=== PATIENT | male | born 1965 | race Caucasian/White ===

== ENCOUNTER 2022-05-16 13:30 | Outpatient (CLI) | payer OTHER, SELFPAY ==
[2022-05-16 21:27] LABS: Chloride* 102 mmol/L (96-114)
[2022-05-16 21:28] LABS: Albumin* 4.8 g/dL (3.3-5.0); Potassium* 4.3 mmol/L (3.6-5.1); Sodium* 136 mmol/L (135-149)
[2022-05-16 21:31] LABS: Alanine Aminotransferase* 22 U/L (4-50); Alkaline Phosphatase* 106 U/L (40-150); Aspartate Amino Transferase* 25 U/L (12-35); Bilirubin Total* 0.6 mg/dL (0.1-1.5); Blood Urea Nitrogen* 21 mg/dL (7-30); Calcium* 9.7 mg/dL (8.4-10.6); Carbon Dioxide* 25 mmol/L (20-32); Creatinine* 1.1 mg/dL (0.5-1.5); Estimated Glomerular Filt Rate 79.77; Glucose* 91 mg/dL (60-115)
== END 2022-05-16 13:31 | disposition home or self-care (01) ==
PROVIDERS: PCP Internal Medicine; Visit Provider Dermatology
DX: Z79.899 Other long term (current) drug therapy (principal); L40.9 Psoriasis, unspecified; L40.50 Arthropathic psoriasis, unspecified; E78.5 Hyperlipidemia, unspecified
CPT/HCPCS: 80053; 86480

== ENCOUNTER 2022-06-24 15:15 | Outpatient (CLI) | payer OTHER, SELFPAY ==
--- NOTE | 2022-06-24 15:30 | MR_ITS ---
[facility] [address] [facility] [address] Phone:?[phone] Fax:?[phone] Referring Physician Information: Clarence Richard M.D. [address] [place] [address] Phone:?[phone] Fax:?[phone] Patient:?Jcarlos Tabares D.O.B:?1965 Sex:?Male Phone:?[phone] [facility] MRN:?[id number] Exam Date:?06/24/2022 ? Original Report EXAM: MRI of the RIGHT SHOULDER, without contrast CLINICAL INFORMATION: Male, 56 years old, with right shoulder pain INDICATION: Evaluate rotator cuff tear PRIOR SURGERY: None reported. PLAIN FILMS: None available. COMPARISONS: No prior MRIs available. TECHNICAL INFORMATION: Using a 1.5T MR scanner and a localizing surface coil: Coronals: PD, T2, STIR Sagittals: PD, T2 Axials: PD, T2 SEDATION: None CONTRAST: None FINDINGS: Bones: Proximal humerus: No fracture. There is an intramedullary lesion in the proximal humeral shaft measuring approximately 2.3 x 1.4 x 1.3 cm which demonstrates heterogeneous mild STIR signal hyperintensity and intermediate to low PD and T2 signal (coronal series 4 image 23, and sagittal series 8 image 9). Minimal peripheral marrow edema. No well-defined endosteal scalloping, or periosteal reaction. No intracortical signal abnormality or fracture. Glenoid: No fracture or marrow edema/pathology. No osseous Bankart lesion. Rotator cuff and muscles/tendons: Supraspinatus: Moderate supraspinatus tendinosis with high-grade interstitial tearing at the far anterior distal insertional footprint with likely bursal sided extension measuring approximately 1.3 cm in AP dimension (coronal series 4 image 12, and sagittal series 8 image 7). Articular sided fibers appear intact. No tendon retraction. No muscle belly atrophic changes. Infraspinatus: Mild infraspinatus tendinosis without rotator cuff tear. Teres minor: No tendinopathy, tear or atrophy. Subscapularis: Mild subscapularis tendinosis without rotator cuff tear. Deltoid: No strain or atrophy. Coracoacromial arch: Acromion morphology: The acromion has type II morphology. Small broad-based subacromial osseous spur Acromiohumeral space: The acromiohumeral space is within normal limits. Coracohumeral space: The coracohumeral space is within normal limits. Acromioclavicular joint: Joint: Moderate AC joint arthrosis. Inferior osteophytosis contacts and results in contour deformity of the underlying supraspinatus (coronal series 4 image 17, and sagittal series 8 image 16). Ligaments: Coracoclavicular ligaments are intact. Bursae: Subacromial-subdeltoid: Mild subacromial bursitis Subcoracoid: No convincing subcoracoid bursal thickening/bursitis. Biceps tendon: The long head of the biceps tendon is present within the bicipital groove. The intra-articular and extra-articular segments are intact without tendinosis, tenosynovitis, or displacement. Glenohumeral joint: Effusion/cyst: No significant glenohumeral joint effusion. Articular cartilage: Chondral heterogeneity and thinning of the glenohumeral articular cartilage without full-thickness osteochondral defect. Loose bodies: No discrete intra-articular body within the joint. Labrum:?There is diminutive appearance of the superior labrum with degeneration and fraying. No other definite evidence for labral tear. No paralabral ganglion cyst is identified. Inferior glenohumeral ligament/axillary pouch:?Intact. The axillary pouch is normal in thickness and signal. No evidence of adhesive capsulitis or capsular injury. IMPRESSION: 1. Moderate supraspinatus tendinosis with high-grade interstitial tearing at the far anterior distal insertional footprint with likely bursal sided extension. Articular sided fibers appear intact. No tendon retraction or muscle belly atrophic changes. 2. Mild infraspinatus and subscapularis tendinosis without rotator cuff tear. 3. Moderate AC joint arthrosis with prominent inferior osteophytosis which results in contour deformity of the underlying supraspinatus. Small subacromial osseous spur, with preserved acromiohumeral distance. Mild subacromial bursitis. 4. Diminutive appearance of the superior labrum with degeneration and fraying. 5. No tendinopathy, tear, or displacement of the long head of the biceps tendon. 6. Chondral heterogeneity and thinning without full-thickness chondral defect. 7. Intramedullary lesion of the proximal humeral shaft, indeterminate by imaging though concerning without typically benign features. Recommend follow-up with plain radiographs and bone scan for further evaluation. KME Electronically signed on 06/26/2022 12:56:00 PM by Ritu Moody M.D. Addendum A Addendum: Findings regarding humeral shaft lesion and recommendation for further imaging discussed with Dr. Richard at 1:15pm on 06/26/2022 KME EXAM: MRI of the RIGHT SHOULDER, without contrast CLINICAL INFORMATION: Male, 56 years old, with right shoulder pain INDICATION: Evaluate rotator cuff tear PRIOR SURGERY: None reported. PLAIN FILMS: None available. COMPARISONS: No prior MRIs available. TECHNICAL INFORMATION: Using a 1.5T MR scanner and a localizing surface coil: Coronals: PD, T2, STIR Sagittals: PD, T2 Axials: PD, T2 SEDATION: None CONTRAST: None FINDINGS: Bones: Proximal humerus: No fracture. There is an intramedullary lesion in the proximal humeral shaft measuring approximately 2.3 x 1.4 x 1.3 cm which demonstrates heterogeneous mild STIR signal hyperintensity and intermediate to low PD and T2 signal (coronal series 4 image 23, and sagittal series 8 image 9). Minimal peripheral marrow edema. No well-defined endosteal scalloping, or periosteal reaction. No intracortical signal abnormality or fracture. Glenoid: No fracture or marrow edema/pathology. No osseous Bankart lesion. Rotator cuff and muscles/tendons: Supraspinatus: Moderate supraspinatus tendinosis with high-grade interstitial tearing at the far anterior distal insertional footprint with likely bursal sided extension measuring approximately 1.3 cm in AP dimension (coronal series 4 image 12, and sagittal series 8 image 7). Articular sided fibers appear intact. No tendon retraction. No muscle belly atrophic changes. Infraspinatus: Mild infraspinatus tendinosis without rotator cuff tear. Teres minor: No tendinopathy, tear or atrophy. Subscapularis: Mild subscapularis tendinosis without rotator cuff tear. Deltoid: No strain or atrophy. Coracoacromial arch: Acromion morphology: The acromion has type II morphology. Small broad-based subacromial osseous spur Acromiohumeral space: The acromiohumeral space is within normal limits. Coracohumeral space: The coracohumeral space is within normal limits. Acromioclavicular joint: Joint: Moderate AC joint arthrosis. Inferior osteophytosis contacts and results in contour deformity of the underlying supraspinatus (coronal series 4 image 17, and sagittal series 8 image 16). Ligaments: Coracoclavicular ligaments are intact. Bursae: Subacromial-subdeltoid: Mild subacromial bursitis Subcoracoid: No convincing subcoracoid bursal thickening/bursitis. Biceps tendon: The long head of the biceps tendon is present within the bicipital groove. The intra-articular and extra-articular segments are intact without tendinosis, tenosynovitis, or displacement. Glenohumeral joint: Effusion/cyst: No significant glenohumeral joint effusion. Articular cartilage: Chondral heterogeneity and thinning of the glenohumeral articular cartilage without full-thickness osteochondral defect. Loose bodies: No discrete intra-articular body within the joint. Labrum:?There is diminutive appearance of the superior labrum with degeneration and fraying. No other definite evidence for labral tear. No paralabral ganglion cyst is identified. Inferior glenohumeral ligament/axillary pouch:?Intact. The axillary pouch is normal in thickness and signal. No evidence of adhesive capsulitis or capsular injury. IMPRESSION: 1. Moderate supraspinatus tendinosis with high-grade interstitial tearing at the far anterior distal insertional footprint with likely bursal sided extension. Articular sided fibers appear intact. No tendon retraction or muscle belly atrophic changes. 2. Mild infraspinatus and subscapularis tendinosis without rotator cuff tear. 3. Moderate AC joint arthrosis with prominent inferior osteophytosis which results in contour deformity of the underlying supraspinatus. Small subacromial osseous spur, with preserved acromiohumeral distance. Mild subacromial bursitis. 4. Diminutive appearance of the superior labrum with degeneration and fraying. 5. No tendinopathy, tear, or displacement of the long head of the biceps tendon. 6. Chondral heterogeneity and thinning without full-thickness chondral defect. 7. Intramedullary lesion of the proximal humeral shaft, indeterminate by imaging though concerning without typically benign features. Recommend follow-up with plain radiographs and bone scan for further evaluation. KME Electronically signed on 06/26/2022 1:26:00 PM by Ritu Moody M.D.
== END 2022-06-24 15:16 | disposition home or self-care (01) ==
LOC: MRI 15:16
PROVIDERS: PCP Internal Medicine; Visit Provider Orthopaedic Surgery
DX: M25.511 Pain in right shoulder (principal); M19.011 Primary osteoarthritis, right shoulder; S46.911A Strain of unspecified muscle, fascia and tendon at shoulder and upper arm level, right arm, initial encounter
CPT/HCPCS: 73221

== ENCOUNTER 2022-07-02 11:46 | Outpatient (CLI) | payer OTHER, SELFPAY ==
--- NOTE | 2022-07-02 12:00 | CRLHL7_ITS ---
For Patients: As a result of the Century Cures Act, medical imaging exams and procedure reports are released immediately into your electronic medical record. You may view this report before your referring provider. If you have questions, please contact your health care provider. HISTORY: 56-year-old male. Right shoulder bursitis. Abnormal MRI scan on 06/24/2022 with and intramedullary lesion being noted in the proximal right humeral shaft. TECHNIQUE: 26.2 millicuries of [id number] was injected intravenously. Three phase images of the thorax and shoulders were obtained. FINDINGS: The blood flow and blood pool images appear unremarkable. The delayed images demonstrate mild uptake in the acromioclavicular joints and the glenohumeral joints, consistent with benign arthritic changes. The proximal right humeral shaft appears unremarkable. There are no focal areas of abnormally increased uptake identified. Mild uptake in the cervical and thoracic spine, and the sternoclavicular joints is likely arthritic. Impression: 1. There are benign-appearing arthritic changes in the spine, shoulders and sternoclavicular joints. 2. No other significant bony abnormalities are identified. 3. No significant abnormalities are identified to correspond to the reported lesion in the proximal right humeral shaft. Dictated by Jay Jose MD @ 07/02/2022 4:20:02 PM (Electronically Signed)
== END 2022-07-02 11:47 | disposition home or self-care (01) ==
LOC: NM 11:46
PROVIDERS: PCP Internal Medicine; Visit Provider Orthopaedic Surgery
DX: M75.51 Bursitis of right shoulder (principal); M75.101 Unspecified rotator cuff tear or rupture of right shoulder, not specified as traumatic
CPT/HCPCS: 78315; A9503

== ENCOUNTER 2022-08-27 16:00 | Outpatient (RCR) | payer OTHER, SELFPAY | END 2023-05-29 23:59 | disposition home or self-care (01) | PROVIDERS: PCP Internal Medicine; Visit Provider Orthopaedic Surgery | DX: M75.51 Bursitis of right shoulder (principal); Z51.89 Encounter for other specified aftercare | CPT/HCPCS: 97110; 97162 ==

== ENCOUNTER 2023-06-03 15:49 | Outpatient (CLI) | payer OTHER, SELFPAY | END 2023-06-03 15:50 | disposition home or self-care (01) | PROVIDERS: PCP Internal Medicine; Visit Provider Dermatology | DX: L40.50 Arthropathic psoriasis, unspecified (principal) | CPT/HCPCS: 80053; 86480 ==

== ENCOUNTER 2023-07-03 15:20 | Outpatient (CLI) | payer OTHER, SELFPAY | END 2023-07-03 15:21 | disposition home or self-care (01) | LOC: NFLDREF 07-05 12:54 | PROVIDERS: PCP Internal Medicine; Referring Provider Internal Medicine; Visit Provider Dermatology | DX: Z79.631 Long term (current) use of antimetabolite agent (principal) | CPT/HCPCS: 80053 ==

== ENCOUNTER 2023-09-29 15:59 | Outpatient (CLI) | payer OTHER, SELFPAY | END 2023-09-29 16:00 | disposition home or self-care (01) | LOC: NFLDREF 10-03 18:29 | PROVIDERS: PCP Internal Medicine; Referring Provider Internal Medicine; Visit Provider Dermatology | DX: Z79.631 Long term (current) use of antimetabolite agent (principal) | CPT/HCPCS: 80076 ==

== ENCOUNTER 2023-10-13 16:47 | Outpatient (CLI) | payer OTHER, SELFPAY | END 2023-10-13 16:48 | disposition home or self-care (01) | PROVIDERS: PCP Internal Medicine; Visit Provider Internal Medicine | DX: E78.2 Mixed hyperlipidemia (principal); Z12.5 Encounter for screening for malignant neoplasm of prostate | CPT/HCPCS: 80061; 84153 ==

== ENCOUNTER 2023-11-12 14:55 | Outpatient (CLI) | payer OTHER, SELFPAY | END 2023-11-12 14:56 | disposition home or self-care (01) | LOC: NFLDREF 11-19 15:58 | PROVIDERS: PCP Internal Medicine; Referring Provider Internal Medicine; Visit Provider Internal Medicine | DX: E78.5 Hyperlipidemia, unspecified (principal) | CPT/HCPCS: 80061 ==

== ENCOUNTER 2023-12-25 16:00 | Outpatient (CLI) | payer OTHER, SELFPAY | END 2023-12-25 16:01 | disposition home or self-care (01) | LOC: NFLDREF 12-26 07:27 | PROVIDERS: PCP Internal Medicine; Referring Provider Internal Medicine; Visit Provider Dermatology | DX: L40.50 Arthropathic psoriasis, unspecified (principal); Z79.631 Long term (current) use of antimetabolite agent | CPT/HCPCS: 80053 ==

== ENCOUNTER 2024-06-08 16:33 | Outpatient (REF) | payer OTHER, SELFPAY ==
--- OUTSIDE RECORDS SUMMARY | 2024-06-08 16:36 | XMS_ITS | Clinical Summary ---
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 Role Phone Grant Wills MD Primary Care Provider [phone] Allergies No known active allergies Medications Medication Sig Dispensed Refills Start Date End Date Status COSENTYX, 2 SYRINGES, 150 mg/mL syrg 07/03/2020 Active Social History Tobacco Use Types Packs/Day Years Used Date Smoking Tobacco: Former Cigarettes Q uit: 11/10/1989 Smokeless Tobacco: Never Tobacco Cessation:Counseling Given: Yes Alcohol Use Standard Drinks/Week Comments Not Currently 0 (1 standard drink = 0.6 oz pur e alcohol) Sex and Gender Information Value Date Recorded Sex Assigned at Not on file Gender Identity Not on file Sexual Orientation Not on file Obstetrics History Last Filed Vital Signs Vital Sign Reading Time Taken Comments Blood Pressure 119/83 07/05/2020 3:43 PM CDT Pulse 71 07/05/2020 3:43 PM CDT Temperature 36.8 ??C (98.2 ??F) 07/05/2020 3:43 PM CD T Respiratory Rate - - Oxygen Saturation 98% 07/05/2020 3:43 PM CDT Inhaled Oxygen Concentration - - Weight 84.5 kg (186 lb 3.2 oz) 07/05/2020 3:43 P M CDT Height - - Body Mass Index - - Plan of Treatment Health Maintenance Due Date Last Done Comments Tdap 1978 Depression screening for age 12+ 1979 HIV for age 15-65 1982 BMI (ht and wt on same day) for age 18+ 1985 Hepatitis C screening for ag e 18-79 1985 Tetanus booster 1987 Colonoscopy through age 75 2012 Lipids for age 45-75 2012 Zoster (shingles) series for age 50+ (1 of 2) 2017 COVID-19 vaccine series (2022-24 season) 2023 Influenza for age 50-64 07/11/2024 Pneumococcal series for age 6-64 Aged Out No longer eligible based on patient's age to complete this topic Care Teams 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
[2024-06-08 16:51] LABS: Basophils Absolute Auto 0.05 K/uL (0.00-0.30); Basophils Percent Auto 0.7 % (0.0-3.0); Eosinophils Percent Auto 4.1 % (0.0-7.0); Hematocrit 40.4 % (37.0-53.0); Hemoglobin* 13.8 gm/dL (13.5-17.5); Immature Granulocytes Abs Auto 0.07 K/uL (0.00-0.30); Lymphocytes Percent Auto 46.2 % (20-44); Mean Corpuscular HGB Conc 34 gm/dL (32-36); Mean Corpuscular Hemoglobin 30 pg (26-34); Mean Corpuscular Volume 86 fL (80-100); Monocytes Percent Auto 7.9 % (0.0-11.0); Neutrophils Percent Auto 40.1 % (42.0-72.0); Platelet Count* 247 K/uL (140-440); RDW Coefficient of Variation % 12.5 % (11.5-15.5); Red Blood Count 4.68 m/uL (4.30-5.90); White Blood Count* 7.31 K/uL (4.50-11.00)
[2024-06-08 16:54] LABS: Slide Review Reflex No
[2024-06-08 17:48] LABS: Chloride* 108 mmol/L (96-114)
[2024-06-08 17:49] LABS: Albumin* 4.6 g/dL (3.3-5.0); Potassium* 4.3 mmol/L (3.6-5.1); Sodium* 138 mmol/L (135-149)
[2024-06-08 17:51] LABS: Estimated Glomerular Filt Rate 88 ml/min
[2024-06-08 17:52] LABS: Alanine Aminotransferase* 33 U/L (4-50); Alkaline Phosphatase* 86 U/L (40-150); Anion Gap 8 mEq/L (7-15); Aspartate Amino Transferase* 29 U/L (12-35); Bilirubin Total* 0.7 mg/dL (0.1-1.5); Blood Urea Nitrogen* 21 mg/dL (7-30); Carbon Dioxide* 22 mmol/L (20-32); Glucose* 85 mg/dL (60-115); Total Protein* 7.6 g/dL (6.0-8.3)
[2024-06-08 17:53] LABS: Calcium* 9.5 mg/dL (8.4-10.6)
== END 2024-06-08 16:34 | disposition home or self-care (01) ==
LOC: NPINS 16:33
PROVIDERS: PCP Internal Medicine; Visit Provider Dermatology
DX: L40.0 Psoriasis vulgaris (principal); L40.59 Other psoriatic arthropathy; Z79.899 Other long term (current) drug therapy
CPT/HCPCS: 80053; 85025; 86480

== ENCOUNTER 2024-07-08 16:26 | Outpatient (CLI) | payer OTHER, SELFPAY ==
--- OUTSIDE RECORDS SUMMARY | 2024-07-08 16:30 | XMS_ITS | Clinical Summary ---
Author Organization [facility] Address [place], [place] [address] Care Team Providers Care Chief Risk Officer Name Role Phone Grant Wills MD Primary Care Provider [phone] Allergies No known active allergies Medications Medication Sig Dispensed Refills Start Date End Date Status COSENTYX, 2 SYRINGES, 150 mg/mL syrg 07/03/2020 Active Encounters Date Type Department Care Team Description 06/09/2024 Lab Requisition [facility] [phone] Unknown, Doctor from Last 3 Months Social History Tobacco Use Types Packs/Day Years [...] (1 of 2) 2017 COVID-19 vaccine series ( season) 2023 Influenza for age 50-64 07/11/2024 Pneumococcal series for age 6-64 Aged Out No longer eligible based on patient's age to complete this topic Procedures Procedure Name Priority Date/Time Associated Diagnosis Comments QFT MITOGEN PERFORMABLE Routine 06/08/2024 3:55 PM CDT QFT TB2 PERFORMABLE Routine 06/08/2024 3 :55 PM CDT QFT TB1 PERFORMABLE Routine 06/08/2024 3 :55 PM CDT QUANTIFERON TB GOLD PLUS Routine 06/08/2024 3:55 PM CDT QUANTIFERON TB GOLD PLUS Routine 06/08/2024 3:55 PM CDT from Last 3 Months Results * QFT MITOGEN PERFORMABLE (06/08/2024 3:55 PM CDT) MITOGEN 10.00 IU/mL 06/11/2024 11:40 AM CDT [facility] Blood [facility]LOOD SPECIMEN / Unknown Client Collect / Unknown 06/08/2024 3:55 PM CDT 06/09/2024 9:42 PM CDT Doctor Unknown [facility] [address] [place] [address], * QFT TB2 PERFORMABLE (06/08/2024 3:55 PM CDT) TB2 0.04 IU/mL 06/11/2024 11:09 AM CDT [facility] Blood BLOOD SPECIMEN / Unknown Client Collect / Unknown 06/08/2024 3:55 PM CDT 06/09/2024 9:42 PM CDT Doctor Unknown CHEMISTRY [facility] [address] [address], [place] * QFT TB1 PERFORMABLE (06/08/2024 3:55 PM CDT) TB1 0.05 IU/mL 06/11/2024 11:09 AM CDT [facility] Blood BLOOD SPECIMEN / Unknown Client Collect / Unknown 06/08/2024 3:55 PM CDT 06/09/2024 9:42 PM CDT Doctor Unknown CHEMISTRY Performing Organization Address City/[facility]/ZIP Co de Phone Number [facility] [address] [place] [id number], [place] * QUANTIFERON TB GOLD PLUS (06/08/2024 3:55 PM CDT) QFTP NIL 0.04 06/11/2024 11:46 AM CDT [facility] TB1 0.05 IU/mL 06/11/2024 11:46 AM CDT [facility] TB2 0.04 IU/mL 06/11/2024 11:46 AM CDT [facility] MITOGEN 10.00 IU/mL 06/11/2024 11:46 AM CDT [facility] QFTP TB AG1 - NIL 0.01 024 11:46 AM CDT [facility] TB1-NIL % OF NIL 25 % 06/11/20 24 11:46 AM CDT [facility] QFTP TB AG2 - NIL 0.00 024 11:46 AM CDT [facility] TB2-NIL % OF NIL 0 % 06/11/20 24 11:46 AM CDT [facility] QFTP MITOGEN - NIL 9.96 2023 11:46 AM CDT [facility] QFTP QUANTIFERON INTERPRETATION Negative Negative 06/11/2024 11:46 AM CDT [facility] Blood BLOOD SPECIMEN / Unknown Client Collect / Unknown 06/08/2024 3:55 PM CDT 06/09/2024 9:42 PM CDT [facility] - 06/11/2024 11:46 AM CDT M. tuberculosis infection not likely, but cannot be excluded in cases of immunosuppression. CAUTION: The performance of QuantiFERON-TB Gold Plus has not been evaluated in specimens from: - Individuals with impaired or altered immune factors (HIV infections, transplant patients, those receieving immunosuppressive drugs such as corticosteroids) and those with other clinical conditions (e.g., diabetes, hematological disorders). - Individuals younger than 17 years old. ??Refer to CDC website for testing recommendations in children 6-17 years old. - women Doctor Unknown CHEMISTRY [facility] [address] [place] [address], [place] from Last 3 Months Care Teams Chief Risk Officer Relationship Specialty Start Date End Date Grant Wills MD [address] [place] [id number] PCP - General Internal Medicine 07/05/20
[2024-07-15 22:09] LABS: Ova and Parasite, Fecal Negative (Negative)
== END 2024-07-08 16:27 | disposition home or self-care (01) ==
PROVIDERS: PCP Internal Medicine; Visit Provider Internal Medicine
DX: R19.5 Other fecal abnormalities (principal)
CPT/HCPCS: 80053; 84443; 87177; 87209

== ENCOUNTER 2024-11-30 12:55 | Emergency (ER) | payer OTHER, SELFPAY ==
[2024-11-30 13:20] VITALS: BP 131/99; PULSE 88; RESP 16; TEMP 36.4; O2SAT 97; BMI 27.3
--- NOTE | 2024-11-30 13:28 | CRLHL7_ITS ---
For Patients: As a result of the Cures Act, medical imaging exams and procedure reports are released immediately into your electronic medical record. You may view this report before your referring provider. If you have questions, please contact your health care provider. INDICATION: Left-sided pain. Fall. TECHNIQUE: Left shoulder three views. COMPARISON: None. FINDINGS: No acute fracture or dislocation. Degenerative changes of the acromioclavicular and glenohumeral joints. Soft tissues as imaged are unremarkable. IMPRESSION: No acute osseous abnormality. Dictated by Brett Hunt MD @ 11/30/2024 2:10:59 PM (Electronically Signed)
--- NOTE | 2024-11-30 13:46 | ED.UPPEXIN ---
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 He complains of pain in his shoulder area, there is no loss of consciousness, he does not notice any bruising swelling associated with this. Denies any numbness tingling or weakness. Associated with this but he is really any inability to either forward flex, or abduct his left arm. He is right-hand dominant. No significant history of previous left shoulder injury. This is a workman's comp injury. Does have a history of psoriatic arthritis. Presents here with family member MD complaint: injury to: left and shoulder Onset (ago): hour(s) (8 hours ago) Other injuries: none Hand dominance: Right Place: work Severity: moderate Relieving factors: none and immobilization Exacerbating factors: movement of extremity Context: fall Associated symptoms: denies other symptoms Treatments prior to arrival: NSAIDS Related Data Home Medications ?Medication ?Instructions ?Recorded ?Confirmed cholecalciferol (vitamin D3) 10 10 mcg PO BID 05/16/22 11/30/24 mcg (400 unit) tablet multivitamin 1 tab PO QDAY 05/16/22 11/30/24 omega 5-fzd-yir-fish oil 1,000 mg 1 cap PO QDAY 05/16/22 11/30/24 (120 mg-180 mg) capsule (Fish Oil) pseudoephedrine HCl 30 mg tablet 30 mg PO BID PRN 05/16/22 11/30/24 ibuprofen 200 mg capsule 200 mg PO Q6H PRN 07/17/22 11/30/24 Previous Rx's ?Medication ?Instructions ?Recorded methotrexate sodium 2.5 mg tablet 15 mg (6 x 2.5 mg) PO QWEEK #72 01/06/24 tabs adalimumab-aqvh 40 mg/0.8 mL 40 mg (0.8 mL) subcut Q2W #1.6 mL 01/29/24 subcutaneous pen injector (Yusimry(CF) Pen) Allergies Allergy/AdvReac Type Severity Reaction Status Date / Time No Known Allergies Allergy Unknown Verified 11/30/24 13:14 Review of Systems Status of ROS: Reports: 10 or more systems reviewed and unremarkable except as noted in History and below PFSH PFS Medical History Change in stool ?R19.5 - Other fecal abnormalities (ICD-10) Methotrexate, custodial, current use ?Z79.631 - shelter (current) use of antimetabolite agent (ICD-10) History of alcoholism ?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, in remission (ICD-10) Social History What is your current living situation?: I presently have a place to live Problems where you live: no known problems In the past 12 months, utilities in danger of being shut off: no In past 12 months, lack of transportation kept you from medical appts, meetings, work, or getting things needed for daily living: no In the past 12 mos, have been you worried that your food would run out before you had money to buy more?: never true In the past 12 mos, the food you bought just didn't last and you didn't have money to buy more?: never true Smoking Status: Former smoker How often does anyone, including family, friends and others, physically hurt you: never How often does anyone, including family, friends and others, insult or talk down to you: never How often does anyone, including family, friends and others, threaten you with harm: never How often does anyone, including family, friends and others, scream or curse at you: never Exam Narrative: Exam Narrative: Delightful gentleman in no apparent distress alert to he person place and time, pupils equal round reactive to light his neck is supple full range of motion is noted in flexion extension lateral flexion and rotation is no tenderness noted over his neck there is no tenderness over his left shoulder notable. Over his AC her shoulder specific there is no posterior tenderness noted. His left axilla shows no tenderness swelling notable. He has normal internal external rotation is along the keep his left shoulder abducted. He is tender over the bicipital groove of his upper arm area. Not tender at all over his PAC. Or insertion. There is no bruising noted. Biceps triceps power seems full, the elbow motion is normal, wrist dorsiflexion 1st finger thumb, opposition, finger abduction, strip machine tender strength are normal the left side his sensation is normal over the signature dermatomal areas. A reflexes are +1/4 his biceps triceps and brachioradialis. Really has no ability to abduct his left shoulder. Pulses are normal in his left arm both radial and brachial cap refill is normal, good warmth, Const: Vital Signs, click to edit/add: Vital Signs - 24 hr 11/30/24 13:20 Temperature 97.6 F Pulse Rate [Pulse Oximeter] 88 Respiratory Rate 16 Blood Pressure [Ri ght Upper Arm] 131/99 H Pulse Oximetry 97 Oxygen Delivery Me thod Room Air Documenting provider has reviewed patient's vital signs: yes Course Course ED Course: I reviewed with patient that his x-ray looks normal, no acute abnormality noted. I suspect that this is rotator cuff injury, and given his normal neurologic status, I feel discharge is appropriate, we tend to avoid trying to sling these people, has a little further cause problems. I would recommend that he follow-up with orthopedics earlier bad other than later and consideration of physical therapy and further treatment. He was very comfortable with this. I do think he needs to be restricted to no use of left should shoulder to follow-up with orthopedics. 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 until this happens Vital Signs Vital signs: Initial Vital Signs Temperature 97.6 F 11/30/24 13:20 Temperature Source Temporal Artery Scan 11/30/24 13:20 Pulse Rate 88 11/30/24 13:20 Respiratory Rate 16 11/30/24 13:20 Blood Pressure 131/99 H 11/30/24 13:20 Blood Pressure Mean 109 H 11/30/24 13:20 Blood Pressure Position Sitting 11/30/24 13:20 Pulse Oximetry 97 11/30/24 13:20 Oxygen Delivery Method Room Air 11/30/24 13:20 Vital Signs Temperature 97.6 F 11/30/24 13:20 Pulse Rate 88 11/30/24 13:20 Respiratory Rate 16 11/30/24 13:20 Blood Pressure 131/99 H 11/30/24 13:20 Pulse Oximetry 97 11/30/24 13:20 Oxygen Delivery Method Room Air 11/30/24 13:20 Temperature 97.6 F 11/30/24 13:20 Pulse Rate 88 11/30/24 13:20 Respiratory Rate 16 11/30/24 13:20 Blood Pressure 131/99 H 11/30/24 13:20 Pulse Oximetry 97 11/30/24 13:20 Oxygen Delivery Method Room Air 11/30/24 13:20 MDM - Extremity Injury (Upper) MDM Narrative Medical decision making narrative: I discussed with him that I think this is likely a rotator cuff injury, possibility of AC joint disruption, subluxation versus dislocation of left shoulder, and axillary injury such as a brachial plexus injury of his left arm is also with audible. Lower suspicion of cervical spine injury, or radiculopathy. We will go ahead and order an x-ray, and go from there, he declined any a or ibuprofen or Tylenol. Medical Records Attestation: I reviewed the patient's medical records. Imaging Data Left shoulder: Attestation: I have reviewed the pertinent imaging results. My impression: No acute abnormality Discharge Plan Discharge Clinical Impression: Injury of left shoulder Patient Disposition: Home w/ Parent or Adult Condition: Stable Additional Instructions: Home rest use of Tylenol ibuprofen, no use of left shoulder, icing is appropriate, follow-up with orthopedics, appointment given, return as needed, light activity overall. Follow up appointment is scheduled at the [facility] on 12/07/24 with a 9:30am appointment time. Please bring the Workman's Compensation form to your visit. If you have any questions or need to reschedule, please call [phone]. [facility] [address] [place] [id number] Activity Level: Light activity Prescriptions: No Action cholecalciferol (vitamin D3) 10 mcg (400 unit) tablet 10 mcg PO BID omega 9-jkf-ary-fish oil [Fish Oil] 1,000 mg (120 mg-180 mg) capsule 1 cap PO QDAY multivitamin Tablet 1 tab PO QDAY pseudoephedrine HCl 30 mg tablet 30 mg PO BID PRN Rx Instructions: DNExceed 4 doses/24h ibuprofen 200 mg capsule 200 mg PO Q6H PRN methotrexate sodium 2.5 mg tablet 15 mg PO QWEEK Qty: 72 0RF Yusimry(CF) Pen 40 mg/0.8 mL pen injector 40 mg subcut Q2W Qty: 1.6 2RF Rx Instructions: Maintenance dose, every 14 days. Follow Up/Referrals: Grant Wills MD [Primary Care Provider] - Stand Alone Forms: [facility] Info Instructions
== END 2024-11-30 14:54 | disposition home or self-care (01) ==
LOC: ED 14:34
PROVIDERS: Emergency Provider Family Medicine; PCP Internal Medicine
DX: S49.92XA Unspecified injury of left shoulder and upper arm, initial encounter (principal); W01.0XXA Fall on same level from slipping, tripping and stumbling without subsequent striking against object, initial encounter; Y99.0 Civilian activity done for income or pay
CPT/HCPCS: 73030; 99283

== ENCOUNTER 2024-12-02 08:43 | Outpatient (CLI) | payer OTHER, SELFPAY ==
[2024-12-02 10:10] LABS: Hematocrit 46.2 % (37.0-53.0); Hemoglobin* 15.1 gm/dL (13.5-17.5); Mean Corpuscular HGB Conc 33 gm/dL (32-36); Mean Corpuscular Hemoglobin 29 pg (26-34); Mean Corpuscular Volume 89 fL (80-100); Platelet Count* 280 K/uL (140-440); Red Blood Count 5.21 m/uL (4.30-5.90); White Blood Count* 8.73 K/uL (4.50-11.00)
[2024-12-02 10:17] LABS: Slide Review Reflex No
[2024-12-02 10:18] LABS: Chloride* 103 mmol/L (96-114)
[2024-12-02 10:19] LABS: Albumin* 4.9 g/dL (3.3-5.0); Potassium* 4.6 mmol/L (3.6-5.1); Sodium* 141 mmol/L (135-149)
[2024-12-02 10:21] LABS: Blood Urea Nitrogen* 19 mg/dL (7-30); Estimated Glomerular Filt Rate 88 ml/min
[2024-12-02 10:22] LABS: Alanine Aminotransferase* 48 U/L (4-50); Alkaline Phosphatase* 93 U/L (40-150); Anion Gap 8 mEq/L (7-15); Aspartate Amino Transferase* 45 U/L (12-35); Bilirubin Total* 0.8 mg/dL (0.1-1.5); Calcium* 9.8 mg/dL (8.4-10.6); Carbon Dioxide* 30 mmol/L (20-32); Glucose* 102 mg/dL (60-115); Total Protein* 8.2 g/dL (6.0-8.3)
== END 2024-12-02 08:44 | disposition home or self-care (01) ==
LOC: NPINS 08:49
PROVIDERS: PCP Internal Medicine; Visit Provider Student in an Organized Health Care Education/Training Program
DX: L40.0 Psoriasis vulgaris (principal); L40.59 Other psoriatic arthropathy; Z79.899 Other long term (current) drug therapy
CPT/HCPCS: 80053; 85027

== ENCOUNTER 2025-02-23 08:30 | Outpatient (CLI) | payer OTHER, SELFPAY ==
--- NOTE | 2025-03-02 08:24 | W.PM.SLEEP ---
Sleep Study Details Details Interpreting Provider: Courtney Date of Sleep Study: 02/23/25 Sleep Study Details: STUDY TYPE:? Home unattended ? BMI:? 27.3 ORDERING PROVIDER:? Courtney INDICATION:? Concerned about sleep apnea ? SLEEP SUMMARY:? 371 minutes monitored RESPIRATORY SUMMARY:? AHI 16.4 Low oxygen 88 0.1% of study oxygen less than 90% Snoring 97.8% PERIODIC LIMB MOVEMENTS OF SLEEP:? Not recorded CARDIAC:? Range 62-104, mean 80.1 beats per minute IMPRESSION:? Moderate obstructive sleep apnea RECOMMENDATION: Treatment options include CPAP, dental appliance and/or airway expansion surgery.
== END 2025-02-23 08:31 | disposition home or self-care (01) ==
LOC: SLEEP 08:31
PROVIDERS: PCP Internal Medicine; Visit Provider Otolaryngology
DX: G47.33 Obstructive sleep apnea (adult) (pediatric) (principal)
CPT/HCPCS: 95806

== ENCOUNTER 2025-06-18 09:47 | Outpatient (CLI) | payer OTHER, SELFPAY | END 2025-06-18 09:48 | disposition home or self-care (01) | LOC: NFLDUCREF 09:49 | PROVIDERS: PCP Internal Medicine; Visit Provider Nurse Practitioner Family | DX: R21 Rash and other nonspecific skin eruption (principal) | CPT/HCPCS: 86787 ==

== ENCOUNTER 2025-07-04 14:45 | Outpatient (RCR) | payer OTHER, SELFPAY | END 2025-11-01 23:59 | disposition home or self-care (01) | PROVIDERS: PCP Internal Medicine; Visit Provider Orthopaedic Surgery | DX: Z48.89 Encounter for other specified surgical aftercare (principal); Z51.89 Encounter for other specified aftercare | CPT/HCPCS: 97110; 97162 ==

== ENCOUNTER 2025-10-20 15:48 | Outpatient (CLI) | payer OTHER, SELFPAY | END 2025-10-20 15:49 | disposition home or self-care (01) | LOC: NFLDREF 10-26 09:07 | PROVIDERS: PCP Internal Medicine; Referring Provider Internal Medicine; Visit Provider Internal Medicine | DX: E78.5 Hyperlipidemia, unspecified (principal); Z13.9 Encounter for screening, unspecified | CPT/HCPCS: 80053; 80061; 84443; G0103 ==

== ENCOUNTER 2025-11-01 15:39 | Outpatient (CLI) | payer OTHER, SELFPAY ==
--- NOTE | 2025-11-01 16:00 | CRLHL7_ITS ---
For Patients: As a result of the Century Cures Act, medical imaging exams and procedure reports are released immediately into your electronic medical record. You may view this report before your referring provider. If you have questions, please contact your health care provider. INDICATION: Thyroid nodule COMPARISON: 07/26/2021 TECHNIQUE: Nails scale and color Doppler images were acquired of the thyroid gland. FINDINGS: Isthmus measures 3.2 millimeters. Solid and cystic nodule left thyroid lobe measures 2.4 x 1.4 x 1.8 cm, TR 3. Solid and cystic nodule right thyroid lobe measures 7.1 x 3.3 x 5.5 cm, previously measuring 5.1 x 2.2 x 3.6 cm. This has been previously biopsied. TR 3. The right lobe measures 8.3 x 3.5 x 6.3 cm and the left lobe measures 5.2 x 1.8 x 2.1 cm in size. The color Doppler images demonstrate normal vascularity. There is no evidence of cervical lymphadenopathy or parathyroid mass. IMPRESSION: Increased size of previously biopsied TR 3 nodule right thyroid lobe, now measuring 7.1 cm, previously measuring 5.1 cm. Additional TR 3 nodule left thyroid lobe measures 2.4 cm. Dictated by Derrek Rosario MD @ 11/05/2025 10:39:35 PM (Electronically Signed)
== END 2025-11-01 15:40 | disposition home or self-care (01) ==
LOC: US 15:42
PROVIDERS: PCP Internal Medicine; Visit Provider Internal Medicine
DX: E04.1 Nontoxic single thyroid nodule (principal)
CPT/HCPCS: 76536